=== PATIENT | male | born 1935 | race African-American/Black ===

== ENCOUNTER 2020-11-21 12:33 | Inpatient (IN) | payer OTHER ==
[2020-11-21] MEDS ORDERED: RAPID SEQUENCE INTUBATION KIT NR ONE (13:20)
[2020-11-21] MEDS ORDERED: SODIUM CHLORIDE IV ONE (13:22)
[2020-11-21] MEDS ORDERED: ONDANSETRON 4 MG/2 ML VIAL IVPUSH ONE (13:36)
[2020-11-21] MEDS ORDERED: ONDANSETRON 4 MG/2 ML VIAL ONE (13:38)
[2020-11-21 14:23] LABS: BASO % 0.3 % (0-2.0); EOS % 0.1 % (0-4.5); HEMOGLOBIN 12.3 GM/dL (11.7-16.9); LYMPH % 22.8 % (8-40); MCH 28.2 pg (25.7-33.7); MCHC 33.2 g/dl (32.0-35.9); MEAN CELL VOLUME 85.1 fl (80-96); MEAN PLT VOLUME 8.5 fl (7.5-11.1); MONO % 11.8 % (3.8-10.2); PLATELET COUNT 179 K/MM3 (134-434); RBC 4.35 M/mm3 (4.00-5.60); WHITE BLOOD COUNT 5.3 K/mm3 (4.0-10.0)
[2020-11-21 14:32] LABS: INR 1.01 (0.83-1.09); PROTHROMBIN TIME (PATIENT) 12.4 SEC (9.7-13.0)
[2020-11-21 14:34] LABS: ACTIVATED PTT 31.8 SECONDS (25.2-36.5)
[2020-11-21 14:42] LABS: CHLORIDE 107 mmol/L (98-107); POTASSIUM 3.5 mmol/L (3.5-5.1); SODIUM 141 mmol/L (136-145)
[2020-11-21 14:45] LABS: ALBUMIN 3.3 g/dl (3.4-5.0); ANION GAP 10 MMOL/L (8-16); BLOOD UREA NITROGEN 19.5 mg/dL (7-18); CALCIUM 8.5 mg/dL (8.5-10.1); CO2 24 mmol/L (21-32); GLUCOSE,RANDOM 132 mg/dL (74-106)
[2020-11-21 14:46] LABS: LIPASE 135 U/L (73-393)
[2020-11-21 14:48] LABS: CREATININE 1.5 mg/dL (0.55-1.3); SGOT/AST 36 U/L (15-37); SGPT/ALT 63 U/L (13-61)
[2020-11-21 14:49] LABS: BILIRUBIN,TOTAL 0.4 mg/dL (0.2-1); TOT PROT 6.7 g/dl (6.4-8.2)
[2020-11-21 14:51] LABS: ALK PHOS 114 U/L (45-117)
[2020-11-21] MEDS ORDERED: DEXAMETHASONE SOD PHOSPHATE 10 MG/1 ML VIAL IVPUSH ONE (15:57)
[2020-11-21] MEDS ORDERED: AZITHROMYCIN IVPB 500 MG in DEXTROSE 5%-WATER - 250 ML IVPB ONE (16:11)
[2020-11-21] MEDS ORDERED: CEFTRIAXONE 1,000 MG in DEXTROSE 5%-WATER - 50 ML IVPB ONE (16:11)
[2020-11-21 16:28] LABS: LDH 201 U/L (87-246)
[2020-11-21] MEDS ORDERED: DEXAMETHASONE SOD PHOSPHATE 4 MG/1 ML VIAL ONE (17:36)
[2020-11-21] MEDS ORDERED: CEFTRIAXONE 1 GM/50 ML BAG ONE (17:36)
[2020-11-21] MEDS ORDERED: AZITHROMYCIN IVPB 500 MG/250 ML BAG IVPB ONE (17:37)
[2020-11-21 17:41] LABS: PH,URINE 6.5 (5.0-8.0); URINE APPEARANCE CLEAR; URINE BILIRUBIN NEGATIVE (NEGATIVE); URINE COLOR YELLOW; URINE GLUCOSE (UA) NEGATIVE (NEGATIVE); URINE KETONE NEGATIVE (NEGATIVE); URINE LEUK ESTERASE NEGATIVE (NEGATIVE); URINE NITRITE NEGATIVE (NEGATIVE); URINE PROTEIN NEGATIVE (NEGATIVE); URINE UROBILINOGEN 0.2 mg/dL (0.2-1.0)
[2020-11-21] MEDS ORDERED: ONDANSETRON 4 MG/2 ML VIAL IVPUSH PRN (23:04)
[2020-11-22 06:32] VITALS: BMI 28.0
[2020-11-22] MEDS ORDERED: DEXTROSE 5%-WATER - 50 ML IVPB ONE (09:07)
[2020-11-22] MEDS ORDERED: cefTRIAXone SODIUM 1 GM VIAL ONE (09:07)
[2020-11-22 09:33] LABS: BASO % 0.1 % (0-2.0); HEMATOCRIT 33.8 % (35.4-49); HEMOGLOBIN 11.6 GM/dL (11.7-16.9); LYMPH % 7.3 % (8-40); MCH 28.7 pg (25.7-33.7); MCHC 34.4 g/dl (32.0-35.9); MEAN CELL VOLUME 83.3 fl (80-96); MEAN PLT VOLUME 8.8 fl (7.5-11.1); MONO % 6.5 % (3.8-10.2); NEUT % 86.1 % (42.8-82.8); PLATELET COUNT 160 K/MM3 (134-434); RBC 4.06 M/mm3 (4.00-5.60); WHITE BLOOD COUNT 8.3 K/mm3 (4.0-10.0)
[2020-11-22 09:42] LABS: POTASSIUM 3.7 mmol/L (3.5-5.1)
[2020-11-22] MEDS: DEXAMETHASONE SOD PHOSPHATE 4 MG/1 ML VIAL IVPUSH SCH (09:50)
[2020-11-22] MEDS: ASCORBIC ACID 500 MG TABLET (FP) PO SCH ×2 (09:51→21:19)
[2020-11-22] MEDS: CEFTRIAXONE 1 GM in DEXTROSE 5%-WATER - 50 ML IVPB SCH (09:51)
[2020-11-22] MEDS: AZITHROMYCIN IVPB 500 MG/250 ML BAG IVPB SCH (09:51)
[2020-11-22] MEDS: ZINC SULFATE 220 MG CAPSULE (FP) PO SCH (09:51)
[2020-11-22] MEDS: APIXABAN 2.5 MG TABLET PO SCH ×2 (09:51→21:19)
[2020-11-22] MEDS: CHOLECALCIFEROL (VIT D3) 1,000 UNIT (25 MCG) TABLET PO SCH (09:51)
[2020-11-22] MEDS ORDERED: ENOXAPARIN NA (PORCINE) 30 MG/0.3 ML DISP.SYRIN SQ SCH (10:00)
[2020-11-22 10:07] LABS: BLOOD UREA NITROGEN 18.4 mg/dL (7-18); CALCIUM 7.6 mg/dL (8.5-10.1)
[2020-11-22 10:08] LABS: BILIRUBIN,TOTAL 0.4 mg/dL (0.2-1); MAGNESIUM 1.5 mg/dL (1.8-2.4); TOT PROT 6.5 g/dl (6.4-8.2)
[2020-11-22 10:10] LABS: CREATININE 1.4 mg/dL (0.55-1.3)
[2020-11-22] MEDS ORDERED: REMDESIVIR 200 MG in SODIUM CHLORIDE 210 ML IVPB ONE (14:00)
[2020-11-22] MEDS ORDERED: MAGNESIUM OXIDE 400 MG TABLET (FP) PO ONE (18:49)
[2020-11-23 07:58] LABS: BASO % 0.1 % (0-2.0); HEMATOCRIT 34.5 % (35.4-49); HEMOGLOBIN 11.4 GM/dL (11.7-16.9); LYMPH % 7.3 % (8-40); MCHC 33.1 g/dl (32.0-35.9); MEAN CELL VOLUME 84.6 fl (80-96); MEAN PLT VOLUME 9.1 fl (7.5-11.1); MONO % 4.1 % (3.8-10.2); NEUT % 88.5 % (42.8-82.8); PLATELET COUNT 158 K/MM3 (134-434); RBC 4.08 M/mm3 (4.00-5.60); RDW 15.1 % (11.9-15.9); WHITE BLOOD COUNT 13.2 K/mm3 (4.0-10.0)
[2020-11-23 08:07] LABS: BLOOD UREA NITROGEN 18.1 mg/dL (7-18); MAGNESIUM 1.9 mg/dL (1.8-2.4)
[2020-11-23 08:10] LABS: CREATININE 1.2 mg/dL (0.55-1.3)
[2020-11-23 08:11] LABS: BILIRUBIN,TOTAL 0.6 mg/dL (0.2-1); TOT PROT 6.6 g/dl (6.4-8.2)
[2020-11-23] MEDS ORDERED: cefTRIAXone SODIUM 1 GM VIAL ONE (08:16)
[2020-11-23] MEDS ORDERED: DEXTROSE 5%-WATER - 50 ML IVPB ONE (08:16)
[2020-11-23] MEDS: DEXAMETHASONE SOD PHOSPHATE 4 MG/1 ML VIAL IVPUSH SCH (09:15)
[2020-11-23] MEDS: ZINC SULFATE 220 MG CAPSULE (FP) PO SCH (09:16)
[2020-11-23] MEDS: ASCORBIC ACID 500 MG TABLET (FP) PO SCH ×2 (09:16→22:03)
[2020-11-23] MEDS: AZITHROMYCIN IVPB 500 MG/250 ML BAG IVPB SCH (09:16)
[2020-11-23] MEDS: CEFTRIAXONE 1 GM in DEXTROSE 5%-WATER - 50 ML IVPB SCH (09:16)
[2020-11-23] MEDS: APIXABAN 2.5 MG TABLET PO SCH ×2 (09:16→22:03)
[2020-11-23] MEDS: amLODIPine BESYLATE 5 MG TABLET (FP) PO SCH (09:16)
[2020-11-23] MEDS: CHOLECALCIFEROL (VIT D3) 1,000 UNIT (25 MCG) TABLET PO SCH (09:17)
[2020-11-23] MEDS: REMDESIVIR 100 MG in SODIUM CHLORIDE 230 ML IVPB SCH (13:02)
[2020-11-23] MEDS ORDERED: LOSARTAN POTASSIUM 50 MG TABLET PO ONE (23:08)
[2020-11-24 08:06] LABS: BASO % 0.3 % (0-2.0); HEMATOCRIT 33.2 % (35.4-49); HEMOGLOBIN 11.3 GM/dL (11.7-16.9); LYMPH % 6.4 % (8-40); MCH 28.4 pg (25.7-33.7); MCHC 34.2 g/dl (32.0-35.9); MEAN CELL VOLUME 83.1 fl (80-96); MEAN PLT VOLUME 8.8 fl (7.5-11.1); NEUT % 88.3 % (42.8-82.8); PLATELET COUNT 172 K/MM3 (134-434); RBC 3.99 M/mm3 (4.00-5.60); WHITE BLOOD COUNT 10.8 K/mm3 (4.0-10.0)
[2020-11-24 08:21] LABS: CHLORIDE 105 mmol/L (98-107); POTASSIUM 3.9 mmol/L (3.5-5.1); SODIUM 140 mmol/L (136-145)
[2020-11-24 08:33] LABS: ALBUMIN 2.8 g/dl (3.4-5.0); BLOOD UREA NITROGEN 15.2 mg/dL (7-18); CALCIUM 8.4 mg/dL (8.5-10.1); GLUCOSE,RANDOM 99 mg/dL (74-106)
[2020-11-24 08:34] LABS: ANION GAP 9 MMOL/L (8-16); CO2 26 mmol/L (21-32); MAGNESIUM 2.2 mg/dL (1.8-2.4)
[2020-11-24 08:37] LABS: ALK PHOS 89 U/L (45-117)
[2020-11-24 08:43] LABS: LDH 236 U/L (87-246); SGOT/AST 28 U/L (15-37); SGPT/ALT 45 U/L (13-61)
[2020-11-24 08:44] LABS: TOT PROT 6.1 g/dl (6.4-8.2)
[2020-11-24 08:45] LABS: BILIRUBIN,TOTAL 1.3 mg/dL (0.2-1)
[2020-11-24] MEDS ORDERED: cefTRIAXone SODIUM 1 GM VIAL ONE ×2 (09:33)
[2020-11-24] MEDS: ZINC SULFATE 220 MG CAPSULE (FP) PO SCH (10:11)
[2020-11-24] MEDS: DEXAMETHASONE SOD PHOSPHATE 4 MG/1 ML VIAL IVPUSH SCH (10:11)
[2020-11-24] MEDS: amLODIPine BESYLATE 5 MG TABLET (FP) PO SCH (10:11)
[2020-11-24] MEDS: AZITHROMYCIN IVPB 500 MG/250 ML BAG IVPB SCH (10:12)
[2020-11-24] MEDS: APIXABAN 2.5 MG TABLET PO SCH ×2 (10:12→22:22)
[2020-11-24] MEDS: CHOLECALCIFEROL (VIT D3) 1,000 UNIT (25 MCG) TABLET PO SCH (10:12)
[2020-11-24] MEDS: ASCORBIC ACID 500 MG TABLET (FP) PO SCH ×2 (10:12→22:22)
[2020-11-24] MEDS: CEFTRIAXONE 1 GM in DEXTROSE 5%-WATER - 50 ML IVPB SCH (12:37)
[2020-11-24] MEDS: REMDESIVIR 100 MG in SODIUM CHLORIDE 230 ML IVPB SCH (13:40)
[2020-11-24] MEDS: LOSARTAN POTASSIUM 50 MG TABLET PO SCH (18:29)
[2020-11-25 08:44] LABS: BASO % 0.2 % (0-2.0); HEMATOCRIT 36.9 % (35.4-49); HEMOGLOBIN 12.4 GM/dL (11.7-16.9); LYMPH % 7.6 % (8-40); MCH 28.2 pg (25.7-33.7); MCHC 33.6 g/dl (32.0-35.9); MEAN CELL VOLUME 83.9 fl (80-96); MEAN PLT VOLUME 9.2 fl (7.5-11.1); NEUT % 87.2 % (42.8-82.8); PLATELET COUNT 199 K/MM3 (134-434); RDW 14.5 % (11.9-15.9); WHITE BLOOD COUNT 10.5 K/mm3 (4.0-10.0)
[2020-11-25] MEDS ORDERED: DEXTROSE 5%-WATER - 50 ML IVPB ONE (09:32)
[2020-11-25] MEDS ORDERED: cefTRIAXone SODIUM 1 GM VIAL ONE (09:32)
[2020-11-25 09:42] LABS: ALBUMIN 3.2 g/dl (3.4-5.0); BLOOD UREA NITROGEN 19.6 mg/dL (7-18); CALCIUM 8.6 mg/dL (8.5-10.1); CREATININE 1.1 mg/dL (0.55-1.3)
[2020-11-25 09:45] LABS: MAGNESIUM 2.3 mg/dL (1.8-2.4); TOT PROT 6.8 g/dl (6.4-8.2)
[2020-11-25 09:54] LABS: BILIRUBIN,TOTAL 0.5 mg/dL (0.2-1)
[2020-11-25] MEDS: AZITHROMYCIN IVPB 500 MG/250 ML BAG IVPB SCH (10:17)
[2020-11-25] MEDS: amLODIPine BESYLATE 10 MG TABLET (FP) PO SCH (10:17)
[2020-11-25] MEDS: ZINC SULFATE 220 MG CAPSULE (FP) PO SCH (10:17)
[2020-11-25] MEDS: APIXABAN 2.5 MG TABLET PO SCH ×2 (10:17→21:35)
[2020-11-25] MEDS: CHOLECALCIFEROL (VIT D3) 1,000 UNIT (25 MCG) TABLET PO SCH (10:17)
[2020-11-25] MEDS: ASCORBIC ACID 500 MG TABLET (FP) PO SCH ×2 (10:17→21:35)
[2020-11-25] MEDS: LOSARTAN POTASSIUM 50 MG TABLET PO SCH (10:17)
[2020-11-25] MEDS: DEXAMETHASONE SOD PHOSPHATE 4 MG/1 ML VIAL IVPUSH SCH (10:18)
[2020-11-25] MEDS: CEFTRIAXONE 1 GM in DEXTROSE 5%-WATER - 50 ML IVPB SCH (12:44)
[2020-11-25] MEDS: REMDESIVIR 100 MG in SODIUM CHLORIDE 230 ML IVPB SCH (14:33)
[2020-11-26] MEDS ORDERED: cefTRIAXone SODIUM 1 GM VIAL ONE (08:30)
[2020-11-26] MEDS ORDERED: DEXTROSE 5%-WATER - 50 ML IVPB ONE (08:30)
[2020-11-26] MEDS: DEXAMETHASONE SOD PHOSPHATE 4 MG/1 ML VIAL IVPUSH SCH (09:20)
[2020-11-26] MEDS: amLODIPine BESYLATE 10 MG TABLET (FP) PO SCH (09:21)
[2020-11-26] MEDS: ZINC SULFATE 220 MG CAPSULE (FP) PO SCH (09:21)
[2020-11-26] MEDS: CEFTRIAXONE 1 GM in DEXTROSE 5%-WATER - 50 ML IVPB SCH (09:21)
[2020-11-26] MEDS: AZITHROMYCIN IVPB 500 MG/250 ML BAG IVPB SCH (09:21)
[2020-11-26] MEDS: CHOLECALCIFEROL (VIT D3) 1,000 UNIT (25 MCG) TABLET PO SCH (09:21)
[2020-11-26] MEDS: LOSARTAN POTASSIUM 50 MG TABLET PO SCH (09:21)
[2020-11-26] MEDS: APIXABAN 2.5 MG TABLET PO SCH ×2 (09:21→21:56)
[2020-11-26] MEDS: ASCORBIC ACID 500 MG TABLET (FP) PO SCH ×2 (09:21→21:56)
[2020-11-26] MEDS: CARVEDILOL 6.25 MG TABLET (FP) PO SCH ×2 (09:21→21:56)
[2020-11-26] MEDS: REMDESIVIR 100 MG in SODIUM CHLORIDE 230 ML IVPB SCH (14:01)
[2020-11-26 18:24] LABS: BASO % 0.1 % (0-2.0); EOS % 0.1 % (0-4.5); HEMATOCRIT 35.7 % (35.4-49); HEMOGLOBIN 12.1 GM/dL (11.7-16.9); MCH 28.4 pg (25.7-33.7); MEAN CELL VOLUME 83.4 fl (80-96); MEAN PLT VOLUME 8.9 fl (7.5-11.1); MONO % 5.9 % (3.8-10.2); NEUT % 86.9 % (42.8-82.8); PLATELET COUNT 234 K/MM3 (134-434); RBC 4.27 M/mm3 (4.00-5.60); RDW 14.8 % (11.9-15.9); WHITE BLOOD COUNT 10.1 K/mm3 (4.0-10.0)
[2020-11-26 18:33] LABS: POTASSIUM 4.2 mmol/L (3.5-5.1)
[2020-11-26 18:36] LABS: ALBUMIN 3.1 g/dl (3.4-5.0); BLOOD UREA NITROGEN 28.3 mg/dL (7-18); CALCIUM 8.5 mg/dL (8.5-10.1)
[2020-11-26 18:37] LABS: MAGNESIUM 2.2 mg/dL (1.8-2.4)
[2020-11-26 18:39] LABS: CREATININE 1.4 mg/dL (0.55-1.3)
[2020-11-26 18:41] LABS: BILIRUBIN,TOTAL 0.4 mg/dL (0.2-1); TOT PROT 6.7 g/dl (6.4-8.2)
[2020-11-26 20:25] LABS: ANISOCYTOSIS 1+; MACROCYTOSIS 0; PLATELET ESTIMATE NORMAL
[2020-11-26] MEDS: ROSUVASTATIN CA 10 MG TABLET (FP) PO SCH (21:56)
[2020-11-27 08:53] LABS: BASO % 0.1 % (0-2.0); EOS % 0.4 % (0-4.5); HEMATOCRIT 36.5 % (35.4-49); HEMOGLOBIN 12.3 GM/dL (11.7-16.9); LYMPH % 12.7 % (8-40); MCHC 33.8 g/dl (32.0-35.9); MEAN CELL VOLUME 82.9 fl (80-96); MEAN PLT VOLUME 8.7 fl (7.5-11.1); MONO % 9.3 % (3.8-10.2); NEUT % 77.5 % (42.8-82.8); PLATELET COUNT 247 K/MM3 (134-434); RDW 14.5 % (11.9-15.9); WHITE BLOOD COUNT 9.2 K/mm3 (4.0-10.0)
[2020-11-27 09:05] LABS: POTASSIUM 4.1 mmol/L (3.5-5.1)
[2020-11-27 09:15] LABS: BILIRUBIN,TOTAL 0.4 mg/dL (0.2-1); TOT PROT 6.6 g/dl (6.4-8.2)
[2020-11-27] MEDS ORDERED: DEXTROSE 5%-WATER - 50 ML IVPB ONE (09:20)
[2020-11-27] MEDS ORDERED: cefTRIAXone SODIUM 1 GM VIAL ONE (09:20)
[2020-11-27 09:22] LABS: CALCIUM 8.4 mg/dL (8.5-10.1); CREATININE 1.2 mg/dL (0.55-1.3); MAGNESIUM 2.3 mg/dL (1.8-2.4)
[2020-11-27] MEDS: CHOLECALCIFEROL (VIT D3) 1,000 UNIT (25 MCG) TABLET PO SCH (10:32)
[2020-11-27] MEDS: CARVEDILOL 6.25 MG TABLET (FP) PO SCH ×2 (10:32→22:22)
[2020-11-27] MEDS: APIXABAN 2.5 MG TABLET PO SCH ×2 (10:32→22:22)
[2020-11-27] MEDS: ZINC SULFATE 220 MG CAPSULE (FP) PO SCH (10:32)
[2020-11-27] MEDS: amLODIPine BESYLATE 10 MG TABLET (FP) PO SCH (10:33)
[2020-11-27] MEDS: LOSARTAN POTASSIUM 50 MG TABLET PO SCH (10:33)
[2020-11-27] MEDS: ASCORBIC ACID 500 MG TABLET (FP) PO SCH ×2 (10:33→22:22)
[2020-11-27] MEDS: AZITHROMYCIN IVPB 500 MG/250 ML BAG IVPB SCH (10:33)
[2020-11-27] MEDS: DEXAMETHASONE SOD PHOSPHATE 4 MG/1 ML VIAL IVPUSH SCH (10:33)
[2020-11-27 10:47] LABS: ANISOCYTOSIS 1+; MACROCYTOSIS 0; OVALOCYTE 1+; PLATELET ESTIMATE NORMAL
[2020-11-27] MEDS: CEFTRIAXONE 1 GM in DEXTROSE 5%-WATER - 50 ML IVPB SCH (13:21)
[2020-11-27] MEDS: ROSUVASTATIN CA 10 MG TABLET (FP) PO SCH (22:22)
[2020-11-28 05:20] VITALS: PULSE 52
[2020-11-28 08:49] VITALS: BP 131/75; TEMP 98.6
[2020-11-28] MEDS: amLODIPine BESYLATE 10 MG TABLET (FP) PO SCH (10:35)
[2020-11-28] MEDS: ZINC SULFATE 220 MG CAPSULE (FP) PO SCH (10:35)
[2020-11-28] MEDS: DEXAMETHASONE SOD PHOSPHATE 4 MG/1 ML VIAL IVPUSH SCH (10:35)
[2020-11-28] MEDS: APIXABAN 2.5 MG TABLET PO SCH (10:35)
[2020-11-28] MEDS: ASCORBIC ACID 500 MG TABLET (FP) PO SCH (10:35)
[2020-11-28] MEDS: CARVEDILOL 6.25 MG TABLET (FP) PO SCH (10:35)
[2020-11-28] MEDS: LOSARTAN POTASSIUM 50 MG TABLET PO SCH (10:36)
[2020-11-28] MEDS: CHOLECALCIFEROL (VIT D3) 1,000 UNIT (25 MCG) TABLET PO SCH (10:36)
== END 2020-11-28 14:40 | disposition home or self-care (01) | DRG 177 ==
LOC: JER 12:33 → JERBED 18:06 → J4W 11-22 05:53
PROVIDERS: ADMIT Internal Medicine; ATTEND Nurse Practitioner Acute Care
PROC: XW13325 Transfusion of Convalescent Plasma (Nonautologous) into Peripheral Vein, Percutaneous Approach, New Technology Group 5 (ICD-10-PCS; principal; 2020-11-22)
PROC: XW033E5 Introduction of Remdesivir Anti-infective into Peripheral Vein, Percutaneous Approach, New Technology Group 5 (ICD-10-PCS; 2020-11-22)
DX: U07.1 COVID-19 (principal); J12.82 Pneumonia due to coronavirus disease 2019; E87.2 Acidosis; N17.9 Acute kidney failure, unspecified; I48.19 Other persistent atrial fibrillation; I10 Essential (primary) hypertension; E78.5 Hyperlipidemia, unspecified; R55 Syncope and collapse; R73.03 Prediabetes; D64.9 Anemia, unspecified
CPT/HCPCS: 36415; 36430; 70450-TC; 71045-TC-FY; 74174-TC; 80053; 80061; 81003; 82550; 82553; 82728; 82962; 83036; 83605; 83615; 83690; 83721; 83735; 83880; 84443; 84484; 85025; 85379; 85610; 85730; 86140; 86850; 86900; 86901; 87040; 87076; 87086; 87804; 87899; 93005; 93010; 97116-GP; 97161-GP; 99285-25; C9399; C9803; J1100; P9017; U0003

== ENCOUNTER 2023-11-19 14:55 | Emergency (ER) | payer OTHER ==
[2023-11-19 15:59] VITALS: BMI 32.5
[2023-11-19 16:47] LABS: BASO % 0.3 % (0-2.0); EOS % 1.1 % (0-4.5); HEMOGLOBIN 12.4 GM/dL (11.7-16.9); LYMPH % 11.2 % (8-40); MCH 28.4 pg (25.7-33.7); MCHC 34.4 g/dl (32.0-35.9); MEAN CELL VOLUME 82.6 fl (80-96); MONO % 10.4 % (3.8-10.2); PLATELET COUNT 212 10^3/uL (134-434); RBC 4.36 M/mm3 (4.00-5.60); RDW 15.3 % (11.9-15.9); WHITE BLOOD COUNT 7.5 K/mm3 (4.0-10.0)
[2023-11-19 16:56] LABS: EPI CELLS 9 /uL (0-25.1); HYALINE CASTS 3 /uL (0-3.1); PH,URINE 5.5 (5.0-8.0); URINE APPEARANCE CLEAR; URINE BACTERIA 7 /uL (0-1359); URINE BILIRUBIN NEGATIVE (NEGATIVE); URINE COLOR YELLOW; URINE GLUCOSE (UA) NEGATIVE (NEGATIVE); URINE KETONE NEGATIVE (NEGATIVE); URINE LEUK ESTERASE NEGATIVE (NEGATIVE); URINE NITRITE NEGATIVE (NEGATIVE); URINE PROTEIN 1+ (NEGATIVE); URINE RBC 22 /uL (0-23.9); URINE WBC 12 /uL (0-25.8)
[2023-11-19 17:07] LABS: POTASSIUM 3.9 mmol/L (3.5-5.1)
[2023-11-19 17:09] LABS: ALBUMIN 3.4 g/dl (3.4-5.0); BLOOD UREA NITROGEN 30.6 mg/dL (7-18); MAGNESIUM 2.3 mg/dL (1.8-2.4)
[2023-11-19 17:12] LABS: CREATININE 1.8 mg/dL (0.55-1.3)
[2023-11-19 17:14] LABS: BILIRUBIN,TOTAL 0.6 mg/dL (0.2-1); TOT PROT 7.6 g/dl (6.4-8.2)
[2023-11-19] MEDS: LACTATED RINGERS SOLUTION 1000 ML INFUS.BAG IV ONE ×3 (17:28→17:34)
[2023-11-19 20:36] VITALS: BP 136/65; PULSE 61; RESP 19; TEMP 97.5
[2023-11-19] MEDS ORDERED: MAGNESIUM CITRATE 300 ML BOTTLE ONE (21:15)
[2023-11-19] MEDS: MAGNESIUM CITRATE 300 ML BOTTLE PO ONE (21:16)
[2023-11-19] MEDS: SODIUM PHOSPHATE/NA BIPHOS 133 ML ENEMA PR ONE (21:51)
[2023-11-20 01:13] LABS: POTASSIUM 3.4 mmol/L (3.5-5.1)
[2023-11-20 01:15] LABS: BLOOD UREA NITROGEN 29.7 mg/dL (7-18); CALCIUM 8.7 mg/dL (8.5-10.1)
[2023-11-20 01:19] LABS: CREATININE 1.5 mg/dL (0.55-1.3)
== END 2023-11-20 02:37 | disposition home or self-care (01) ==
LOC: JER 14:55
DX: R55 Syncope and collapse (principal); K59.00 Constipation, unspecified; N17.9 Acute kidney failure, unspecified; R53.1 Weakness; R74.01 Elevation of levels of liver transaminase levels; W18.11XA Fall from or off toilet without subsequent striking against object, initial encounter; Y93.E1 Activity, personal bathing and showering; Y92.002 Bathroom of unspecified non-institutional (private) residence as the place of occurrence of the external cause; Z20.822 Contact with and (suspected) exposure to COVID-19
CPT/HCPCS: 0241U-QW; 36415; 70450-TC; 71045-TC-FY; 74176-TC; 80048; 80053; 81003; 82272; 83735; 84484; 85025; 93005; 93010; 99285-25